=== PATIENT | male | born 1965 | race Caucasian/White ===

== ENCOUNTER 2017-04-05 05:02 | Inpatient (IN) ==
[~2017-04-05 05:02] MED LIST: NOZIN NASAL SWAB NAS ONE
[2017-04-05] MEDS ORDERED: CEFAZOLIN 1 G INJECTION IVP ONE (05:31)
[2017-04-05] MEDS ORDERED: TRANEXAMIC ACID 1,000 MG in NS 100 ML IV ONE ×2 (06:00→07:00)
[2017-04-05] MEDS ORDERED: FAMOTIDINE PB 20 MG/50 ML BAG IV ONE (06:00)
[2017-04-05] MEDS ORDERED: METOCLOPRAMIDE 10mg/2ml INJECTION IVP ONE (06:00)
[2017-04-05] MEDS ORDERED: ONDANSETRON 4 MG/2 ML INJECTION IVP ONE (06:00)
[2017-04-05] MEDS ORDERED: ACETAMINOPHEN 500 MG TABLET PO ONE (06:00)
[2017-04-05] MEDS ORDERED: LIDOCAINE 1% (10mg/ml) 2mL INJ PF SDV ID ONE (06:00)
[2017-04-05] MEDS ORDERED: DEXAMETHASONE 4 MG/ML INJECTION IVP ONE (06:00)
[2017-04-05 06:01] VITALS: BMI 30.6
[2017-04-05] MEDS: LR 1,000 ML IV SCH ×2 (06:02→09:23)
--- NOTE | 2017-04-05 06:27 | Anesthesia Preoperative Report ---
Anesthesia Preoperative Record - Date and Time Date: 04/05/17 Preoperative Diagnosis: LT AMBER M16.12 Proposed Procedure: Left Total Hip NPO Since Date: 04/05/17 NPO Since Time: 06:26 Allergies/Adverse Reactions: Allergies Allergy/AdvReac Type Severity Reaction Status Date / Time No Known Allergies Allergy Verified 04/05/17 05:49 - Vital Signs Vital Signs: Temperature 97.8 F 04/05/17 06:01 Pulse Rate 66 04/05/17 06:01 Respiratory Rate 18 04/05/17 06:01 Blood Pressure 148/94 H 04/05/17 06:01 Pulse Oximetry 98 04/05/17 06:01 Height and Weight: Height 1.65 m Weight 83.5 kg Body Mass Index 30.6 - Medications Inpatient Medications: Current Medications Cefazolin Sodium (Kefzol) 2 g IVP PREOP ONE Stop: 04/05/17 05:32 Epinephrine HCl 0.25 mg/Bupivacaine HCl 30 ml/Morphine Sulfate 15 mg/Ketorolac Tromethamine 60 mg/Sodium Chloride 65.25 mls @ 0 mls/hr OPSITE INTRAOP ONE; Per Protocol PRN Reason: Protocol Stop: 04/05/17 08:01 Famotidine/Sodium Chloride (Pepcid Premix) 20 mg in 50 mls @ 100 mls/hr IV PREOP ONE Stop: 04/05/17 06:29 Last Admin: 04/05/17 06:03 Dose: 100 mls/hr Tranexamic Acid 1,000 mg/ (Sodium Chloride) 110 mls @ 660 mls/hr IV INTRAOP ONE Stop: 04/05/17 07:09 Lactated Ringer's (Lactated Ringers) 1,000 mls @ 50 mls/hr IV .Q20H JOSE CRUZ Last Admin: 04/05/17 06:02 Dose: 50 mls/hr Isopropyl Alcohol (Nozin Nasal Swab) 1 each LETTY PREOP ONE Stop: 04/05/17 07:29 Last Admin: 04/05/17 06:07 Dose: 3 each Sodium Chloride (Iv Flush) 10 - 80 ml IV PRN PRN PRN Reason: [place] Home Medications: Home Medications Medication Instructions Recorded Confirmed Type Advil (Ibuprofen) 200 mg tablet 200 mg PO DAILY PRN tab 01/17/17 04/05/17 History multivitamin tablet 1 tab PO DAILY 01/17/17 04/05/17 History Is Patient on Beta Leah?: No - Medical History Respiratory: Reports: Sleep Apnea (patient is requesting referral to Dr Carlos for possible LISA) Cardiovascular: Reports: Other (elevated BP not htn per h&p; dyslipidemia per h& p) Neuro/Musculoskeletal: Reports: HX.MS.OSAR Other History: Comment Only: Anesthesia Reactions (none reported) - Surgical History Anesthesia Reactions: None Hx Family Anesthesia Reaction: No History of Motion Sickness: No - Social History Smoking Status: Never smoker Hx Chewing Tobacco Use: No Second Hand Exposure: No Substance Use Type: does not use Alcohol Intake Frequency: does not drink - Pertinent Findings EKG: Sinus Rhythm - Physical Exam Respiratory Exam: Present: lungs clear Cardiovascular Exam: Present: regular rate and rhythm - Airway Assessment Mallampati Score: II TMD: 3 Fingerbreadths Neck Extension: good Overall Assessment: no airway concerns - ASA ASA Score: 2 - Plan Anesthesia: General Inhalation Gases (Per patients request) - Discussion Discussion: Discussed risks/options/alternatives of anesthesia and questions answered. Patient consents. Nursing pain assessment noted. Present for Discussion: spouse Attestation Statement: Prior to the delivery of any anesthetic medication, I examined the patient, developed the plan, obtained the patient's consent and discussed the risk and benefits of the procedure with the patient/guardian. - Additional Information Seen by Anesthesia: Yes
[2017-04-05] MEDS ORDERED: VANCOMYCIN 1,000 MG INJECTION ONE (06:51)
[2017-04-05] MEDS ORDERED: FentaNYL 100 MCG/2 ML INJECTION ONE (07:05)
[2017-04-05] MEDS ORDERED: ROCURONIUM 50 MG/5 ML INJECTION IVP ONE (07:05)
[2017-04-05] MEDS ORDERED: PROPOFOL 20 ML ONE (07:05)
[2017-04-05] MEDS ORDERED: SUCCINYLCHOLINE 20mg/mL 10mL INJECTION ONE (07:08)
[2017-04-05] MEDS ORDERED: .WATER FOR INJECTION,STERILE 10 ML VIAL ONE (07:23)
[2017-04-05] MEDS ORDERED: HYDROMORPHONE 2 MG/ML INJECTION ONE (07:23)
[2017-04-05] MEDS ORDERED: PROPOFOL 60 ML ONE (07:25)
[2017-04-05] MEDS ORDERED: KETAMINE 500 MG/10 ML INJECTION ONE (07:27)
[2017-04-05] MEDS ORDERED: SALINE FLUSH 10ml SYRINGE IV PRN (07:28)
[2017-04-05] MEDS ORDERED: NOZIN NASAL SWAB NAS ONE ×2 (07:28→10:22)
[2017-04-05] MEDS ORDERED: VANCOMYCIN 1,000 MG INJECTION IAR ONE (07:49)
[2017-04-05] MEDS ORDERED: METOPROLOL 5mg/5ml INJECTION IVP ONE (07:57)
[2017-04-05] MEDS ORDERED: EPINEPHrine PF 0.25 MG, BUPIVACAINE 0.25% PF 30 ML, MORPHINE SULFATE 15 MG, KETOROLAC I... OPSITE ONE (08:00)
[2017-04-05] MEDS ORDERED: SALINE FLUSH 10ml SYRINGE ONE ×2 (08:32→09:13)
[2017-04-05] MEDS ORDERED: PHENYLEPHRINE INJ 10 MG/ML VIAL IV ONE (08:32)
--- NOTE | 2017-04-05 08:41 | Operative Note ---
- Procedure Preoperative Diagnosis: Left hip primary degenerative joint disease Postoperative Diagnosis: Same as preoperative diagnosis. Surgeon: Reed Serra MD Web Content Producer: Reza Sultana Complications: None. Anesthesia: General, GETA Estimated Blood Loss: See Anesthesia Record. Fluids: Please see Anesthesia Record. Description of Procedure: Mr. Reid and his left hip were identified and marked in the preoperative holding area. He was brought back to the operating suite and placed under general anesthesia. He was then placed in a lateral decubitus position with his left hip up. The left lower extremity was prepped and draped in my normal sterile fashion. Timeout was performed. The [employer] robotic arm was used to assist with the surgery. A pelvic array was placed into the iliac crest through three small incisions. A direct superior approach was utilized. An approximately 10 cm incision was made in the skin and dissection carried down to the muscle fascia which was then split in line with skin incision. A checkpoint was placed in the greater trochanter. The short external rotators were identified and tagged and detached. A capsulotomy was performed and the hip dislocated. A femoral neck osteotomy was performed at the pre-templated level measuring down from the femoral head. The head was removed and acetabulum exposed. Labrum was removed. He had large inferior and anterior osteophytes as expected from the CT scan. The acetabulum was then registered with the robot. The robotic arm was then used to ream with a 51 reamer. The robot then was again used to place a 52 Trident cup in 40 of tilt and 22 of anteversion. A liner was then placed. The proximal femur was exposed and prepared with a cookie cutter followed by reaming and broaching to a size 4. We trialed with a 0 head. After thorough irrigation a final Accolade 2 size 4 stem with 127 neck was placed. Leg length and offset were checked with the robot and were good. A final 0 ceramic head was placed and the hip reduced. Betadine solution was used to irrigate throughout the case. It was followed by normal saline irrigation. Joint cocktail was injected throughout soft tissue. The capsulotomy was repaired with Ethibond. Short external rotators were also repaired with Ethibond. 1 g of vancomycin powder was placed into the wound. The muscle fascia was then repaired with #1 Vicryl. I then left my surgical assistant certified to close the subcutaneous tissue with 2-0 Vicryl followed by running 4-0 Monocryl skin followed by Dermabond and a sterile dressing. The patient with any placed back into supine position and taken to recovery room in the care of anesthesia.
[2017-04-05] MEDS ORDERED: SUGAMMADEX 200mg/2ml INJECTION IVP ONE (08:45)
[2017-04-05] MEDS ORDERED: NALOXONE 0.4 MG/ML INJECTION ONE (09:14)
--- NOTE | 2017-04-05 10:04 | Anesthesia Postoperative Note ---
- Date and Time Date: 04/05/17 Time: 10:04 - Status Patient Participated in Evaluation: Patient Participated in Person Vital Signs: Temperature 97.7 F 04/05/17 09:20 Pulse Rate 81 04/05/17 10:00 Respiratory Rate 22 04/05/17 10:00 Blood Pressure 139/84 04/05/17 10:00 Pulse Oximetry 98 04/05/17 10:00 Respiratory Function: Airway Patent Cardiovascular Function: Regular Pulse EKG: Sinus Rhythm Mental Status: Alert and Oriented Pain Intensity: 3 Hydration: Taking PO Fluids Complications During Recover: None Apparent - Follow-Up Instructions Instructions: Per Surgeon
--- NOTE | 2017-04-05 10:13 | XRay Report ---
Indication: postoperative image PROCEDURE: XR pelvis w/ 1 view LT hip: Encounter: Initial Comparison: CT dated March 23, 2017 Findings: Postoperative changes of left total hip replacement are seen. There is expected postoperative subcutaneous gas. No evidence of hardware failure or acute fracture. No retained radiopaque surgical instruments or sponges seen. Impression: New left total hip prosthesis without evidence of immediate complication. .
[2017-04-05] MEDS ORDERED: Oxycodone *IR* 5 MG TABLET PO PRN (10:22)
[2017-04-05] MEDS ORDERED: ONDANSETRON 4 MG/2 ML INJECTION IVP PRN (10:22)
[2017-04-05] MEDS ORDERED: DiphenhydrAMINE 25 MG CAPSULE PO PRN (10:22)
[2017-04-05] MEDS ORDERED: NAPROXEN 220 MG TABLET PO PRN (10:22)
[2017-04-05] MEDS ORDERED: LORazepam 1 MG TABLET PO PRN (10:22)
[2017-04-05] MEDS ORDERED: DiphenhydrAMINE 50 MG/ML INJECTION IVP PRN (10:22)
[2017-04-05] MEDS: NS 1,000 ML IV SCH ×2 (10:54→22:46)
[2017-04-05] MEDS: DOCUSATE SODIUM 100 MG CAPSULE PO SCH ×2 (10:55→20:01)
[2017-04-05] MEDS: ACETAMINOPHEN 325 MG TABLET PO SCH ×4 (10:55→20:01)
[2017-04-05] MEDS: POLYETHYL GLYCOL 3350 17gm PACKET PO SCH (10:56)
[2017-04-05 11:03] VITALS: RESP 16
[2017-04-05] MEDS: DEXAMETHASONE 20 MG/5 ML INJECTION IVP SCH ×2 (14:31→22:43)
[2017-04-05] MEDS: NOZIN NASAL SWAB NAS SCH ×3 (14:31→21:24)
[2017-04-05] MEDS: CEFAZOLIN 2 G in NS 100 ML IV SCH ×2 (14:32→22:44)
[2017-04-05] MEDS: ASPIRIN *EC* 81 MG TABLET PO SCH (20:01)
[2017-04-05] MEDS ORDERED: SENNOSIDES 8.6 MG TABLET PO SCH (21:00)
[2017-04-06] MEDS: NOZIN NASAL SWAB NAS SCH (05:39)
[2017-04-06] MEDS: ACETAMINOPHEN 325 MG TABLET PO SCH ×2 (08:02→12:50)
[2017-04-06] MEDS: DOCUSATE SODIUM 100 MG CAPSULE PO SCH (08:02)
[2017-04-06] MEDS: POLYETHYL GLYCOL 3350 17gm PACKET PO SCH (08:03)
--- NOTE | 2017-04-06 08:16 | Orthopedic Progress Note ---
Date: Date: 04/06/17 Time: 812 Subjective/Severity of Illness: Doing well. No complaints with the hip. His knee has a clicking which he thinks is a tendon. No CP, SOA or cough reported. He has been mobile with good tolerance. Expects discharge today. Orthopedic Objective PO Vital signs: Temperature 98.3 F 04/06/17 07:26 Pulse Rate 100 04/06/17 07:26 Respiratory Rate 16 04/06/17 07:26 Blood Pressure 156/80 H 04/06/17 07:26 Pulse Oximetry 96 04/06/17 07:26 Height and Weight: Height 5 ft 5 in Weight 184 lb 8.43 oz Body Mass Index 30.6 - Constitutional General Appearance: Present: alert, cooperative, no acute distress - Respiratory Exam Present: non-labored - Extremities Exam Extremities: Present: pulses intact. Absent: calf tenderness - Surgical Site Incision: Mepilex dressing intact, dressing intact (pin site dressing at illiac crest intact and dry.), no drainage - Integumentary Exam Present: pink, warm, dry - Neurological Exam Present: no deficits - Psychiatric Exam Present: alert, normal affect - Labs Result Diagrams: 04/06/17 04:29 04/06/17 04:29 Abnormal lab results 04/06/17 04/06/17 Range/Units 04:29 04:29 Hgb 13.3 L (13.5-17.5) GM/DL Hct 38.3 L (41-53) % Glucose 160 H (75-110) MG/DL H & H 04/06/17 Range/Units 04:29 Hgb 13.3 L (13.5-17.5) GM/DL Hct 38.3 L (41-53) % Orthopedic Assessment and Plan (1) Primary osteoarthritis of left hip Status: Acute Assessment and Plan: Current anti-coagulation protocol for VTE prophylaxis. SCD's. PT/OT services to improve independent function. Discharge Planning per Case Management. - Anticoagulation Therapy Anticoagulation: ASA 81 mg PO BID x6 weeks Hospital Course Summary Disclaimer: The visit summary below is not to be considered part of the above Progress Note.
[2017-04-06] MEDS: ASPIRIN *EC* 81 MG TABLET PO SCH (08:26)
[2017-04-06] MEDS ORDERED: SENNOSIDES 8.6 MG TABLET PO PRN (08:52)
[2017-04-06 11:41] VITALS: BP 152/79; PULSE 92; TEMP 97.9; O2SAT 98
--- NOTE | 2017-04-06 12:31 | Discharge Summary ---
Orthopedic Discharge Info Date of admission: 04/05/17 05:02 Primary care physician: Octavio Goncalves MD Attending Physician: Lopez Serra MD Consults: 04/05/17 05:31 Consult to Anesthesiology [CONS] Routine Reason For Exam: Preoperative Assessment 04/05/17 10:22 Case Management Consult [CONS] Routine Reason For Exam: Discharge Planning DME-Walker [CONS] Routine Height: 5 ft 5 in Weight: 184 lb 1.376 oz Total Joint Outpatient Therapy [CONS] Routine Comment: Remove dressing in 2 weeks - Discharge Diagnosis (1) Primary osteoarthritis of left hip Status: Acute - Procedures Procedures: Left AMBER - Laboratory Result Diagrams: 04/06/17 04:29 04/06/17 04:29 Laboratory: Abnormal lab results 04/06/17 04/06/17 Range/Units 04:29 04:29 Hgb 13.3 L (13.5-17.5) GM/DL Hct 38.3 L (41-53) % Glucose 160 H (75-110) MG/DL H & H 04/06/17 Range/Units 04:29 Hgb 13.3 L (13.5-17.5) GM/DL Hct 38.3 L (41-53) % Orthopedic Discharge HPI - HPI Comments This patient was admitted for elective surgical tx of end stage degenerative joint disease that failed to respond to conservative treatment. Further details of this is found in the admission H&P. Orthopedic Hospital Course Hospital course: 04/06/17 12:28 After appropriate preoperative clearance and signing of operative consent, the patient was given IV antibiotics, according to orthopedic protocol. The patient was taken to the operating room and underwent elective joint arthroplasty. Following surgery, antibiotics were discontinued less than 24 hours according to joint protocol. Appropriate anticoagulants were initiated and SCDs added for DVT prevention. The dressing was clean, dry, and intact. Pain control was obtained via multimodal approach. Bowel motivation addressed with scheduled and PRN medications. Early mobilization was initiated through PT services. Discharge arrangements made by a collaborative effort between the patient and Case Management. Follow-up is scheduled in 2-3 weeks. Discharge instructions given by orthopedic providers and nursing staff at discharge. Discharge condition was good. Care extended to > 2 midnight stays?: No Discharge Plan - Med Rec/Dispo Referrals/Follow Up: Lopez Serra MD [Physician] - 04/27/17 9:15 am Luis Eduardo Instructions: [facility] Postop Instructions Additional Instructions: PHYSICAL THERAPY AT [facility] ON APRIL 08 AT 10:30 AM. TAKE FOLDER WITH COMPLETED INFORMATION TO FIRST APPOINTMENT. Prescriptions: New Aspirin *EC* [Ecotrin] 81 mg PO BID #84 tab Naproxen [Aleve] 440 mg PO BID PRN tablet PRN Reason: Pain Acetaminophen [Tylenol] 650 mg PO QID tablet Continue ergocalciferol (vitamin D2) 50,000 unit capsule 50,000 unit PO DAILY #2 cap multivitamin tablet 1 tab PO DAILY Discontinued Advil (Ibuprofen) 200 mg tablet 200 mg PO DAILY PRN tab PRN Reason: Pain - Disposition 01 Discharged Home, Self-Care - Dismissal Complete Discharge Instructions are:: Complete
[2017-04-07] MEDS ORDERED: BISACODYL 10 MG SUPPOSITORY RECTALLY SCH (20:00)
== END 2017-04-06 14:15 | disposition home or self-care (01) | DRG 470 ==
LOC: SRG 05:02
PROVIDERS: ADMIT Orthopaedic Surgery; ATTEND Orthopaedic Surgery